=== PATIENT | female | born 1950 | race Caucasian/White ===

== ENCOUNTER 2019-03-16 15:53 | Emergency (ER) | payer MEDICARE, OTHER ==
[~2019-03-16] VITALS: Ht 167.6 cm; Wt 75.3 kg
--- NOTE | 2019-03-16 16:14 | NUR ---
PT IS IN ROOM #1B. DR BELLE EVALUATED THE PT.
[2019-03-16] MEDS ORDERED: VENL75TA4 PO (16:15)
[2019-03-16] MEDS ORDERED: GABA100C PO (16:15)
[2019-03-16] MEDS ORDERED: ASPI-612 PO (16:15)
[2019-03-16] MEDS ORDERED: PROP40TA7 PO (16:15)
[2019-03-16] MEDS ORDERED: HYDR12.5 PO (16:15)
[2019-03-16] MEDS ORDERED: LOSA1TAB3 PO (16:15)
[2019-03-16] MEDS ORDERED: LORA-258 PO (16:15)
[2019-03-16] MEDS ORDERED: AMLO2.5T4 PO (16:15)
--- NOTE | 2019-03-16 16:15 | NUR ---
Pt unable to recall dosages and frequency of her meds.
[2019-03-16 16:20] LABS: BASOPHILS % (AUTO) 0.5 % (0.0-2.0); EOSINOPHILS # (AUTO) 0.1 K/uL (0.0-0.7); HEMATOCRIT 37.4 % (31.2-41.9); HEMOGLOBIN 12.4 g/dL (10.9-14.3); LYMPHOCYTES # (AUTO) 1.8 K/uL (20.0-40.0); MEAN CORPUSCULAR HEMOGLOBIN 29.1 uug (24.7-32.8); MEAN CORPUSCULAR HGB CONC 33 g/dL (32.3-35.6); MEAN CORPUSCULAR VOLUME 87.7 fL (75.5-95.3); MONOCYTES # (AUTO) 0.5 K/uL (2.0-10.0); MONOCYTES % (AUTO) 5.6 % (0.0-11.0); NEUTROPHILS # (AUTO) 7.4 K/uL (1.8-8.9); NEUTROPHILS % (AUTO) 74.9 % (38.5-71.5); PLATELET COUNT (AUTO) 387 K/uL (179-408); RED BLOOD CELL COUNT(AUTO) 4.27 MIL/uL (3.63-4.92); WHITE BLOOD COUNT (AUTO) 9.8 K/uL (3.8-11.8)
[2019-03-16 16:25] LABS: CREATININE 1.1 mg/dL (0.6-1.3); POTASSIUM 3.8 mmol/L (3.5-5.1)
[2019-03-16 16:31] LABS: BILIRUBIN,DIRECT 0.1 mg/dL (0.0-0.2); BILIRUBIN,TOTAL 0.2 mg/dL (0.2-1.0)
--- NOTE | 2019-03-16 18:55 | NUR ---
PT's INSURANCE [employer] "[employer]" CALLED WITH TRANSFER INFORMATION. PT IS GOING TO BE TRANSFERED TO [facility]. THEY ARE GOING TO [place] LATER WITH TRNSFER INFORMATION.
--- NOTE | 2019-03-16 18:58 | NUR ---
REPORT GIVEN TO [employer]IC[employer]URE PROFESSOR.
--- NOTE | 2019-03-16 20:38 | NUR ---
pt in bed watching TV. breathing even and unlabored. Denies any pain or discomfort at this time
--- NOTE | 2019-03-16 21:32 | NUR ---
CALLED [facility] TO GIVE REPORT. ROSA M AYON NOT RN NOT AVAILABLE. ROOM ASSIGNMENT 217B PATIENT UPDATED WITH PLAN. NO FURTHER CONCERNS AT THIS TIME. PT
--- NOTE | 2019-03-16 22:28 | NUR ---
Report given to Olena AYON at [facility] [phone]
--- NOTE | 2019-03-16 23:29 | NUR ---
spoke with Lizeth from [facility] transport ETA for transport is [id number]. pt made aware. no further concerns at this time
--- NOTE | 2019-03-16 23:59 | NUR ---
Patient picked up by [facility] via gurney in stable condition. all belongings given to patient. Patient Tranfers to outside Facility Location: [facility]
== END 2019-03-17 00:04 | disposition short-term general hospital (02) ==
LOC: ER 15:55
DX: R55 Syncope and collapse (principal); R79.89 Other specified abnormal findings of blood chemistry; E11.65 Type 2 diabetes mellitus with hyperglycemia; I10 Essential (primary) hypertension; Z88.5 Allergy status to narcotic agent; Z79.82 Long term (current) use of aspirin; Z79.899 Other long term (current) drug therapy
CPT/HCPCS: 36415; 70030-TC; 71045; 85025; 85730; 93005; A4663; J7030